=== PATIENT | female | born 1990 | race Two or more races ===

== ENCOUNTER 2018-01-27 21:05 | Emergency (ER) | payer MEDICAID ==
[~2018-01-27] VITALS: Ht 160 cm; Wt 59.9 kg
[2018-01-27 21:46] VITALS: BP 111/78
== END 2018-01-27 23:29 | disposition left against medical advice (07) ==
LOC: ER 21:05
DX: K08.89 Other specified disorders of teeth and supporting structures (principal); Z53.21 Procedure and treatment not carried out due to patient leaving prior to being seen by health care provider

== ENCOUNTER 2018-02-03 22:54 | Emergency (ER) | payer MEDICAID ==
[~2018-02-03] VITALS: Ht 160 cm; Wt 59.9 kg
[2018-02-03 23:16] VITALS: BP 112/75
== END 2018-02-04 03:11 | disposition home or self-care (01) ==
LOC: ER 22:55
DX: S03.2XXA Dislocation of tooth, initial encounter (principal); K02.9 Dental caries, unspecified; X58.XXXA Exposure to other specified factors, initial encounter; Y93.89 Activity, other specified; Y92.89 Other specified places as the place of occurrence of the external cause; Y99.8 Other external cause status